=== PATIENT | female | born 1985 | race Caucasian/White ===

== ENCOUNTER 2024-06-16 19:55 | Inpatient (IN) | payer BC ==
[2024-06-16] MEDS: ELECTROLYTE-148 SOLN 1,000 ML IV SCH (21:00)
[2024-06-16 21:08] LABS: BASO % 0.4 % (0-2.0); EOS % 1.5 % (0-4.5); HEMATOCRIT 29.5 % (32.4-45.2); HEMOGLOBIN 9.9 GM/dL (10.7-15.3); LYMPH % 14.6 % (8-40); MCH 28.8 pg (25.7-33.7); MCHC 33.7 g/dl (32.0-36.0); MEAN CELL VOLUME 85.6 fl (80-96); MEAN PLT VOLUME 9.3 fl (7.5-11.1); MONO % 6.1 % (3.8-10.2); NEUT % 77.4 % (42.8-82.8); PLATELET COUNT 225 10^3/uL (134-434); RBC 3.45 M/mm3 (3.60-5.2); RDW 13.5 % (11.6-15.6); WHITE BLOOD COUNT 11.1 K/mm3 (4.0-10.0)
[2024-06-16 21:15] LABS: INR 0.87 (0.83-1.09); PROTHROMBIN TIME (PATIENT) 10.1 SEC (9.7-13.0)
[2024-06-16 21:18] LABS: ACTIVATED PTT 25.1 SECONDS (25.2-36.5)
[2024-06-16 21:25] LABS: POTASSIUM 3.7 mmol/L (3.5-5.1)
[2024-06-16 21:26] LABS: CALCIUM 8.7 mg/dL (8.5-10.1)
[2024-06-16 21:27] LABS: BLOOD UREA NITROGEN 8.3 mg/dL (7-18)
[2024-06-16 21:30] LABS: CREATININE 0.5 mg/dL (0.55-1.3)
[2024-06-16] MEDS ORDERED: AMPICILLIN SODIUM 2 GM VIAL ONE (21:33)
[2024-06-16] MEDS: AMPICILLIN - 2 GM in SODIUM CHLORIDE 100 ML IVPB ONE (21:35)
[2024-06-16] MEDS ORDERED: BUTORPHANOL TARTRATE 2 MG/ML VIAL IVPB PRN (21:36)
[2024-06-16 22:01] VITALS: BMI 31.8
[2024-06-16] MEDS ORDERED: OXYTOCIN 30 UNITS in 0.9% NS 30 UNIT/500 ML INFUS.BAG IVPB ONE (23:59)
[2024-06-17] MEDS: OXYTOCIN 30 UNITS in 0.9% NS 30 UNIT/500 ML INFUS.BAG IVPB SCH
[2024-06-17 00:06] LABS: HIV INTERPRETATION NEGATIVE (NEGATIVE)
[2024-06-17] MEDS ORDERED: AMPICILLIN SODIUM 1 GM VIAL ONE ×3 (00:38→08:28)
[2024-06-17] MEDS: AMPICILLIN - 1 GM in SODIUM CHLORIDE 100 ML IVPB SCH (00:40)
[2024-06-17] MEDS ORDERED: AMPICILLIN - 1 GM in SODIUM CHLORIDE 100 ML IVPB SCH (01:45)
[2024-06-17] MEDS ORDERED: FENTANYL/BUPIVACAINE/NS/PF - PCEA - 50 ML DISP.SYRIN EP ONE (05:12)
[2024-06-17] MEDS: FENTANYL/BUPIVACAINE/NS/PF - PCEA - 50 ML DISP.SYRIN EP SCH (05:45)
[2024-06-17] MEDS ORDERED: NALOXONE HCL 0.4 MG/ML VIAL IVPUSH PRN (05:53)
[2024-06-17] MEDS: AMPICILLIN - 2 GM in SODIUM CHLORIDE 100 ML IVPB ONE (07:18)
[2024-06-17] MEDS: PROMETHAZINE HCL 25 MG/1 ML VIAL IVPB ONE (07:21)
[2024-06-17] MEDS ORDERED: OXYTOCIN 20 UNITS in 0.9% NS 20 UNIT/1,000 ML INFUS.BAG IV ONE (08:25)
[2024-06-17] MEDS ORDERED: LIDOCAINE HCL 1% PRESERVATIVE FREE - 30ML VIAL ONE (08:25)
[2024-06-17] MEDS: OXYTOCIN 20 UNITS in 0.9% NS 20 UNIT/1,000 ML INFUS.BAG IV SCH (11:00)
[2024-06-17] MEDS ORDERED: METHYLERGONOVINE MALEATE 0.2 MG/1 ML AMP IM PRN (11:24)
[2024-06-17] MEDS ORDERED: ACETAMINOPHEN 325 MG TABLET (FP) PO PRN (11:24)
[2024-06-17] MEDS ORDERED: BENZOCAINE 28 GM HEMORRHOIDAL OINTMENT TP PRN (11:24)
[2024-06-17] MEDS ORDERED: BENZOCAINE 20% 57 GM BOTTLE TP PRN (11:24)
[2024-06-17] MEDS ORDERED: WITCH HAZEL 50% (TUCKS) 40 PAD/JAR PAD TP PRN (11:24)
[2024-06-17] MEDS ORDERED: BISACODYL 10 MG SUPP.RECT RC PRN (11:24)
[2024-06-17] MEDS: FERROUS SO4 325 MG TABLET (FP) PO SCH (12:01)
[2024-06-17 12:07] LABS: CORD BASE EXCESS -3.1 mmol/L (0-2); CORD HCO3 21.7 mmHg (20-29); CORD PCO2 38.2 mmHg (30-78); CORD pH 7.372 (7.14-7.44)
[2024-06-17 12:08] LABS: CORD BASE EXCESS -3.8 mmol/L (0-2); CORD PCO2 48.4 mmHg (30-78); CORD pH 7.294 (7.14-7.44)
[2024-06-17 15:48] VITALS: RESP 18
[2024-06-18 09:07] LABS: BASO % 0.5 % (0-2.0); EOS % 1.4 % (0-4.5); HEMATOCRIT 27.6 % (32.4-45.2); HEMOGLOBIN 9.3 GM/dL (10.7-15.3); LYMPH % 15.3 % (8-40); MCH 29.3 pg (25.7-33.7); MCHC 33.5 g/dl (32.0-36.0); MEAN CELL VOLUME 87.3 fl (80-96); MEAN PLT VOLUME 10.1 fl (7.5-11.1); MONO % 8.2 % (3.8-10.2); NEUT % 74.6 % (42.8-82.8); PLATELET COUNT 199 10^3/uL (134-434); RBC 3.16 M/mm3 (3.60-5.2); RDW 13.6 % (11.6-15.6); WHITE BLOOD COUNT 11.1 K/mm3 (4.0-10.0)
[2024-06-18] MEDS: PRENATAL VITAMINS W/ FOLIC ACID TABLET (FP) PO SCH (10:03)
[2024-06-18] MEDS: IBUPROFEN 600 MG TABLET (FP) PO PRN (10:03)
[2024-06-18] MEDS: SENNOSIDES/DOCUSATE COMBO (SENNA PLUS) TABLET (UD) PO PRN (20:56)
[2024-06-19 11:23] VITALS: BP 119/75; PULSE 64; TEMP 98.6
== END 2024-06-19 18:40 | disposition home or self-care (01) | DRG 807 ==
LOC: JLDR 19:55 → J3W 06-17 14:20
PROVIDERS: ADMIT Obstetrics & Gynecology; ATTEND Obstetrics & Gynecology
PROC: 0HQ9XZZ Repair Perineum Skin, External Approach (ICD-10-PCS; principal; 2024-06-17)
PROC: 10E0XZZ Delivery of Products of Conception, External Approach (ICD-10-PCS; 2024-06-17)
DX: O60.14X0 Preterm labor third trimester with preterm delivery third trimester, not applicable or unspecified (principal); Z37.0 Single live birth; O99.02 Anemia complicating childbirth; D64.9 Anemia, unspecified; O70.0 First degree perineal laceration during delivery; Z3A.35 35 weeks gestation of pregnancy
CPT/HCPCS: 36415; 36600; 59409; 80048; 82803; 85025; 85610; 85730; 86780; 86803; 86850; 86900; 86901; 87389; 87522